=== PATIENT | male | born 1930 | race Caucasian/White ===

== ENCOUNTER → 2016-12-24 | Outpatient (CLI) | payer OTHER | LOC: CIMAGING 11:52 | PROVIDERS: ATTEND Family Medicine | DX: R42 Dizziness and giddiness (principal) | CPT/HCPCS: 72050-PO; 80053-PO; 80061-PO; 82306-PO; 82607-90; 84443-PO; 85027-PO; G0103-PO ==

== ENCOUNTER → 2017-03-03 | Outpatient (CLI) | payer OTHER | LOC: BHFA 15:00 | PROVIDERS: ATTEND Internal Medicine Cardiovascular Disease | DX: I25.10 Atherosclerotic heart disease of native coronary artery without angina pectoris (principal); I10 Essential (primary) hypertension; E78.5 Hyperlipidemia, unspecified ==

== ENCOUNTER 2017-03-10 09:54 | Day surgery (SDC) | payer OTHER ==
[2017-03-10] MEDS ORDERED: ASPIRIN EC 325 MG TAB PO ONE (10:00)
[2017-03-10] MEDS ORDERED: FAMOTIDINE 20 MG TAB PO ONE (10:00)
[2017-03-10] MEDS ORDERED: NS 1,000 ML IV ONE (10:00)
[2017-03-10] MEDS ORDERED: diphenhydrAMINE 25 MG CAP PO ONE (10:00)
[2017-03-10] MEDS ORDERED: DIAZEPAM 5 MG TAB PO ONE (10:00)
--- NOTE | 2017-03-10 10:19 | CPEKG ---
Heart Rate: 54 RR Interval: 1111 P-R Interval: 248 QRSD Interval: 94 QT Interval: 444 QTC Interval: 421 P [place]: 42 QRS [place]: 19 T Wave [place]: 78 EKG Severity - ABNORMAL ECG - EKG Impression: SINUS RHYTHM EKG Impression: FIRST DEGREE AV BLOCK Electronically Signed By: Joesph Garcia 10-Mar-2017 14:17:57
[2017-03-10 10:35] LABS: % IMMATURE GRANULYOCYTES 0.5 % (0.0-1.1); ABSOLUTE IMMATURE GRANULOCYTES 0.03 10^3/uL (0.00-0.10); ADD DIFF? NO; ADD MORPH? NO; ADD SCAN? NO; ATYPICAL LYMPHOCYTE FLAG 0 (0-99); FRAGMENT RBC FLAG 0 (0-99); HEMOGLOBIN 15.1 g/dL (13.7-17.5); LEFT SHIFT FLG 0 (0-99); LIPEMIA HEMOLYSIS FLAG 90 (0-99); MEAN CELL HEMOGLOBIN 33.4 pg (27.9-34.1); MEAN CELL HEMOGLOBIN CONCENTR. 35.1 g/dL (32.4-36.7); MEAN CELL VOLUME 95.1 fL (81.5-99.8); MEAN PLATELET VOLUME 10.2 fL (8.7-11.7); PLATELET CLUMPS FLAG 0 (0-99); PLATELET COUNT 212 10^3/uL (150-400); RED BLOOD CELL COUNT 4.52 10^6/uL (4.40-6.38); RED CELL DISTRIBUTION WIDTH 12.4 % (11.5-15.2)
[2017-03-10 10:50] LABS: ANION GAP 13 mEq/L (8-16); CALCIUM 9.7 mg/dL (8.5-10.4); CARBON DIOXIDE 21 mEq/l (22-31); CHLORIDE 108 mEq/L (97-110); CHOLESTEROL 210 mg/dL (140-220); CHOLESTEROL/HDL RATIO 5.53 RATIO (1.00-4.97); GLOMERULAR FILTRATION RATE > 60; GLUCOSE 94 mg/dL (70-100); HIGH DENSITY LIPOPROTEIN 38 mg/dL (40-65); LDL/HDL RATIO 3.95 RATIO (1.00-3.64); LOW DENSITY LIPOPROTEIN 150 mg/dL (80-100); MAGNESIUM 2.2 mg/dL (1.6-2.3); NON-HIGH DENSITY LIPOPROTEIN 172 mg/dL (90-129); SODIUM 142 mEq/L (134-144); TRIGLYCERIDE 112 mg/dL (40-150); VERY LOW DENSITY LIPOPROTEINS 22 mg/dL (8-25)
[2017-03-10 10:54] LABS: INR 1.11 (0.83-1.16); PROTIME(PATIENT) 14.2 SEC (12.0-15.0)
[2017-03-10] MEDS ORDERED: LIDOCAINE 1% 300 MG/30 ML SDV ONE (12:07)
[2017-03-10] MEDS ORDERED: IOPAMIDOL (ISOVUE-370) 150 ML BTL IV ONE (12:07)
[2017-03-10] MEDS ORDERED: MIDAZOLAM 2 MG/2 ML VIAL ONE ×2 (12:08→12:17)
[2017-03-10] MEDS ORDERED: fentaNYL 100 MCG/2 ML INJ ONE ×2 (12:08→12:16)
[2017-03-10] MEDS ORDERED: OXYCODONE/APAP 5/325 TAB PO PRN (12:44)
[2017-03-10] MEDS ORDERED: NITROGLYCERIN 0.4 MG BTL SL PRN (12:44)
[2017-03-10] MEDS ORDERED: ATROPINE SULFATE 1 MG/10 ML SYR IVP PRN (12:44)
[2017-03-10] MEDS ORDERED: HYDROCODONE/APAP 5/325 TAB PO PRN (12:44)
[2017-03-10] MEDS ORDERED: ONDANSETRON 4 MG/2 ML VIAL IVP PRN (12:44)
--- NOTE | 2017-03-10 13:13 | PDDXCAT ---
Diagnostic Cath Note - . Date: 03/10/17 Data Processing Manager: Cynthia Indication: other (needs prolonged back surgery.) - Procedure Access: right groin Procedure: left heart catheterization, coronary angiography, left ventriculogram - Materials Left Heart Cath size: 6F Left Heart Cath materials: standard multipack (JL4, JR4, pigtail) - Findings-Left Heart Catheterization LM: 8 mm in size MICHAELA iII flow trifurcates into LAD left Circ and ramus system LAD: 3.5 mm in size with MICHAELA III flow and 30% proximal obstruction. NO flow limiting disease is identified. LCX: 3.0 vessel with a 25-30 % ostial stenosis MICHAELA III flow. RCA: 3.5 mm in size with MICHAELA flow this is a dominant vessel Ramus: 1.5 mm vessel with MICHAELA III flow. This is a small vessel and not a target for intervention. LVEF: 60% Wall motion: Normal wall motion with no evidence of mitral regurgitation or aortic stenosis upon pullback accross the aortic valve. Complications: none Closure method: Angioseal Assessment: Imp/plan: Non-flow limiting CAD with no evidence of flow limiting obstruction. The ejection fraction is normal. LVEDP is 17 mmHg. Plan: The patient has stable and non obstructive CAD with preserved ejection fraction. The patient is at increased risk for a perioperative event given the patient's age, CAD and known comorbid conditions; however, the risk appears to be acceptable low given the findings of today's cath as well as the expected benefit of the planned back operation. Further cardiac testing for clearance will not be required.
== END 2017-03-10 17:26 | disposition home or self-care (01) ==
LOC: FCATH 09:54
PROVIDERS: ATTEND Internal Medicine Cardiovascular Disease
PROC: B2111ZZ Fluoroscopy of Multiple Coronary Arteries using Low Osmolar Contrast (ICD-10-PCS; principal; 2017-03-10)
PROC: 4A023N7 Measurement of Cardiac Sampling and Pressure, Left Heart, Percutaneous Approach (ICD-10-PCS; principal; 2017-03-10)
PROC: B2151ZZ Fluoroscopy of Left Heart using Low Osmolar Contrast (ICD-10-PCS; principal; 2017-03-10)
DX: Z01.810 Encounter for preprocedural cardiovascular examination (principal); I25.10 Atherosclerotic heart disease of native coronary artery without angina pectoris; E78.5 Hyperlipidemia, unspecified; I10 Essential (primary) hypertension; Z85.46 Personal history of malignant neoplasm of prostate; M54.30 Sciatica, unspecified side
CPT/HCPCS: C1760; J1644; J2250; J3010; Q9967